=== PATIENT | male | born 1995 | race Caucasian/White ===

== ENCOUNTER 2017-02-10 22:37 | Emergency (ER) | payer MEDICAID ==
[2017-02-10 22:47] VITALS: BP 134/84
== END 2017-02-11 00:07 | disposition home or self-care (01) ==
LOC: ED 22:37
DX: S02.609A Fracture of mandible, unspecified, initial encounter for closed fracture (principal); W18.30XA Fall on same level, unspecified, initial encounter; Y93.55 Activity, bike riding; Y99.8 Other external cause status; Y92.89 Other specified places as the place of occurrence of the external cause